=== PATIENT | female | born 1950 | race African-American/Black ===

== ENCOUNTER → 2017-09-29 | Outpatient (CLI) | payer BC ==
[2017-09-29 15:56] LABS: CHLORIDE 104 mEq/L (98-107)
[2017-09-29 16:03] LABS: LDL CHOLESTEROL 148 mg/dL (5-100)
[2017-09-29 16:04] LABS: HDL CHOLESTEROL 67 mg/dL (40-59)
[2017-09-29 16:09] LABS: BASOPHILS % 0.7 % (0.0-2.0); EOSINOPHILS % 1.6 % (0.0-5.0); HEMATOCRIT. 42.7 % (36.0-48.0); HEMOGLOBIN. 14.9 g/dL (12.0-16.0); LYMPHOCYTES % 32.6 % (20.0-50.0); MEAN CORPUSCULAR HEMOGLOBIN 29.7 pg (28.0-32.0); MEAN CORPUSCULAR VOLUME 85.4 fL (81.0-99.0); MEAN PLATELET VOLUME 9.8 fl (7.4-10.4); MONOCYTES % 4.9 % (2.0-8.0); NEUTROPHILS % 60.2 % (40.0-76.0); PLATELET 174 x1000/uL (130-400); RED CELL DISTRIBUTION WIDTH 14.3 % (11.6-14.6)
[2017-09-29 16:21] LABS: FERRITIN 51 ng/mL (10-291)
[2017-09-29 18:50] LABS: VITAMIN B12 SERUM 436 pg/mL (211-911)
== END | disposition home or self-care (01) ==
LOC: LAB 13:36
PROVIDERS: ATTEND Internal Medicine Geriatric Medicine
DX: Z00.01 Encounter for general adult medical examination with abnormal findings (principal); I10 Essential (primary) hypertension; R73.09 Other abnormal glucose
CPT/HCPCS: 36415; 80053; 80061; 82306; 82607; 82728; 83036; 83540; 84443; 85025; 86592

== ENCOUNTER 2020-10-12 22:50 | Emergency (ER) | payer BC, MEDICARE ==
[~2020-10-12] VITALS: Ht 162.6 cm; Wt 85.0 kg
[2020-10-13] MEDS ORDERED: TRAMADOL HCL/ACETAMINOPHEN 37.5/325MG TABLET PO ONE (00:30)
[2020-10-13] MEDS ORDERED: TRAM-529 MT (01:02)
[2020-10-13 01:45] VITALS: BP 131/67
== END 2020-10-13 01:46 | disposition home or self-care (01) ==
LOC: ER 22:50
DX: M79.18 Myalgia, other site (principal); I10 Essential (primary) hypertension; Z98.890 Other specified postprocedural states; Z88.6 Allergy status to analgesic agent; Z88.5 Allergy status to narcotic agent
CPT/HCPCS: 71045; 93005; 99282